=== PATIENT | male | born 1975 | race Caucasian/White ===

== ENCOUNTER 2017-07-16 11:19 | Emergency (ER) | payer SELFPAY ==
--- NOTE | 2017-07-16 11:30 | ED Physician Documentation ---
Upper Extremity Injury - HISTORIAN Historian: patient - HPI Stated Complaint: arm pain Chief Complaint: Upper Extremity Injury Onset: just prior to arrival Where: home Severity: moderate Duration: persistent since Context: fall Associated Symptoms: tingling (that has resolved ) Modifying Factors: pain on movement Further Comments: yes (He reports he fell and caught himself with his right arm. He states the pain is with sitting moderate and movement severe. He did try two Alieve approx 2 hours ago. States his current pain is 8/10. He states initally he had some tingling and numbness in fingers 4&5. He states his upper arm elbow and forearm hurt. No pain in wrist. Full sensation of the arm.) - ROS CONST: no problems - PAST HX Past History: none Immunizations: UTD Allergies/Adverse Reactions: Allergies Allergy/AdvReac Type Severity Reaction Status Date / Time No Known Allergies Allergy Verified 07/16/17 12:35 Home Medications: Ambulatory Orders Medication Instructions Recorded NK [NK] 07/16/17 - SOCIAL HX Smoking History: non-smoker Alcohol Use: none Drug Use: none - FAMILY HX Family History: none - VITAL SIGNS Vital Signs: Vital Signs Temp Pulse Resp BP Pulse Ox 98.4 F 80 19 132/81 98 07/16/17 13:15 07/16/17 13:15 07/16/17 13:15 07/16/17 13:15 07/16/17 13:15 - REVIEWED ASSESSMENTS Nursing Assessment Reviewed: Yes Vitals Reviewed: Yes Progress - Progress Progress: 1215: pain is "about all gone". No further complaints. DG ED Results Lab/Radiology - Radiology Radiology Impressions: Examination: Plain film right forearm History: FALL WITH PAIN IN ARM/ELBOW (Hx) Comparison exams: None available Findings: 2 views of the right radius and ulna demonstrates normal mineralization. Region of buckling involving the radial head. Elbow joint effusion. Remaining cortical margins are within normal limits. No other soft tissue abnormality. Impression: Likely radial head fracture. Recommend obtaining dedicated elbow series to better evaluate. Electronically signed on Jul 16, 2017 12:18:52 PM CDT by: Clay Summers Examination: Plain film right humerus History: FALL WITH PAIN IN ARM/ELBOW (Hx) Comparison exams: None provided Findings: 2 views of the right humerus demonstrate normal cortical margins. No fracture. No dislocation. Impression: No acute appearing osseous abnormality. Electronically signed on Jul 16, 2017 12:20:03 PM CDT by: Clay Summers Examination: Plain film right elbow History: PAIN AFTER FALL RADIOLOGIST REQUESTED (Hx) Comparison exams: Plain film dated 16 July 2017 Findings: 3 views of the right elbow demonstrate normal mineralization. Radial head ossific spur. No disruption of the cortical margin. Remaining osseous cortical margins are within normal limits. Anterior joint effusion. Impression: Radial head degenerative spurring. No evidence for displaced fracture. Joint effusion. Electronically signed on Jul 16, 2017 1:01:01 PM CDT by: Clay Summers - Orders Orders: ED Orders Category Date Time Status ELBOW 3 VIEWS [RAD] Routine Exams 07/16/17 Completed FOREARM 2 VIEWS [RAD] Stat Exams 07/16/17 Completed HUMERUS 2 VIEWS OR MORE [RAD] Stat Exams 07/16/17 Completed Ketorolac Tromethamine [Toradol] Med 07/16/17 11:37 Discontinued 60 mg IM NOW ONE Upper Extremity Injury Physic - Physical Exam General Appearance: no acute distress, alert Hand: normal inspection, non-tender, no evidence of injury, normal ROM Wrist: normal inspection, non-tender, no evidence of injury, normal ROM Elbow/Forearm: bone tenderness, pain, soft tissue tenderness, swelling Shoulder: normal inspection, non-tender, no evidence of injury Neuro/Vascular/Tendon: no vascular compromise, motor nml, sensation nml Skin: warm,dry Head/ENT: nml inspection Neck/Back: nml inspection Resp/CVS: chest non-tender, breath sounds nml, heart sounds nml, no resp. distress, lungs clear, reg. rate & rhythm Discharge Clincal Impression: Elbow pain, right Referrals: Primary Doctor,No [Primary Care Provider] - 2 Days Comments: 1. Toradol 10 mg take 1 by mouth every 8 hours as needed for pain 2. Use sling 3. Ice to area 4. Rest 5. Follow up with PCP in 2-4 days 6. Return to ER for any increasing pain or swelling or other concerns Condition: Stable Disposition: 01 HOME, SELF-CARE Decision to Admit: NO Date of Decison to Admit: 07/16/17 Decision Time: 13:08
[2017-07-16] MEDS ORDERED: KETOROLAC TROMETHAMINE 60 MG/2 ML VIAL IM ONE (11:37)
[2017-07-16 13:16] VITALS: BP 132/81
--- NOTE | 2017-07-16 13:20 | Diagnostic Imaging Report ---
PRITI AMADOR [facility] [id number] [facility], [facility] [address] [address] Report Submission Date: Jul 16, 2017 12:18:52 PM CDT Patient Study Name: JANUARY PEREZ Date: Jul 16, 2017 11:46:34 AM CDT Modality Type: DX Gender: M Description: UPPER EXTREMITY : 71 Institution: [facility] Physician: PRITI AMADOR Examination: Plain film right forearm History: FALL WITH PAIN IN ARM/ELBOW (Hx) Comparison exams: None available Findings: 2 views of the right radius and ulna demonstrates normal mineralization. Region of buckling involving the radial head. Elbow joint effusion. Remaining cortical margins are within normal limits. No other soft tissue abnormality. Impression: Likely radial head fracture. Recommend obtaining dedicated elbow series to better evaluate. Electronically signed on Jul 16, 2017 12:18:52 PM CDT by: Clay SINGH
--- NOTE | 2017-07-16 13:21 | Diagnostic Imaging Report ---
PRITI AMADOR [facility] [address] [facility] [address] [address] Report Submission Date: Jul 16, 2017 12:20:03 PM CDT Patient Study Name: JANUARY PEREZ Date: Jul 16, 2017 11:55:48 AM CDT Modality Type: DX Gender: M Description: UPPER EXTREMITY : 71 Institution: [facility] Physician: PRITI AMADOR Examination: Plain film right humerus History: FALL WITH PAIN IN ARM/ELBOW (Hx) Comparison exams: None provided Findings: 2 views of the right humerus demonstrate normal cortical margins. No fracture. No dislocation. Impression: No acute appearing osseous abnormality. Electronically signed on Jul 16, 2017 12:20:03 PM CDT by: Clay SINGH
--- NOTE | 2017-07-16 13:21 | Diagnostic Imaging Report ---
PRITI AMADOR [facility] [address] [facility] [address] [address] Report Submission Date: Jul 16, 2017 1:01:01 PM CDT Patient Study Name: JANUARY PEREZ Date: Jul 16, 2017 12:21:46 PM CDT Modality Type: DX Gender: M Description: UPPER EXTREMITY : 71 Institution: [facility] Physician: PRITI AMADOR Examination: Plain film right elbow History: PAIN AFTER FALL RADIOLOGIST REQUESTED (Hx) Comparison exams: Plain film dated 16 July 2017 Findings: 3 views of the right elbow demonstrate normal mineralization. Radial head ossific spur. No disruption of the cortical margin. Remaining osseous cortical margins are within normal limits. Anterior joint effusion. Impression: Radial head degenerative spurring. No evidence for displaced fracture. Joint effusion. Electronically signed on Jul 16, 2017 1:01:01 PM CDT by: Clay SINGH
== END 2017-07-16 13:15 | disposition home or self-care (01) ==
LOC: ED 11:19
DX: M25.521 Pain in right elbow (principal)
CPT/HCPCS: 73060; 73080; 73090; 96372; 99283